=== PATIENT | female | born 1945 | race Hispanic/Latino ===

== ENCOUNTER 2017-05-19 08:39 | Outpatient (CLI) | payer MEDICARE, MEDICAID ==
--- NOTE | 2017-05-19 11:16 | CT ---
CT CHEST WITHOUT CONTRAST PULMONARY LUNG SCAN: HISTORY: Low dose screening. COMPARISON: None. FINDINGS: Lung screen specific (lung-RADS): No suspicious pulmonary nodules. There are minor findings, not suspicious for lung cancer, such as a sub-4 mm nodule, as well as small , pleural-based, triangular nodules. Potentially significant incidentals (lung-RADS category S): None. Pulmonary incidentals: Scarring in the lung apices. Low grade emphysema in the lung apices. No significant mediastinal adenopathy. Dense coronary artery calcifications. Rotator cuff arthropathy bilaterally. 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 No displaced rib fracture. The upper abdomen is unremarkable, aside from dense calcification of the aorta. IMPRESSION: 1. Lung-RADS 2: Benign appearance of behavior. Continue annual low dose screening in 12 months. 2. Lung-RADS Category S: Negative. No new or potentially significant incidental findings requiring urgent additional evaluation. 3. Other incidental findings as above.
== END 2017-05-19 08:40 | disposition home or self-care (01) ==
LOC: CT 08:39
PROVIDERS: ATTEND Family Medicine
DX: Z87.891 Personal history of nicotine dependence (principal)
CPT/HCPCS: G0297

== ENCOUNTER → 2018-02-23 | Day surgery (SDC) | payer MEDICARE, MEDICAID ==
[~2018-02-23] MED LIST: Ferumoxytol (NON ERSD) 510 MG in Sodium Chloride 0.9% 150 ML IVPB SCH
[2018-02-23 15:47] VITALS: BP 123/60; TEMP 98.1
== END ==
LOC: ONC/OP 13:39
PROVIDERS: ATTEND Internal Medicine Medical Oncology
DX: D50.0 Iron deficiency anemia secondary to blood loss (chronic) (principal)
CPT/HCPCS: 36415; 82728; 96365; J7050; Q0138

== ENCOUNTER 2018-03-02 11:25 | Day surgery (SDC) | payer MEDICARE, MEDICAID ==
[2018-03-02] MEDS ORDERED: Ferumoxytol (NON ERSD) 510 MG in Sodium Chloride 0.9% 150 ML IVPB SCH (11:45)
[2018-03-02] MEDS ORDERED: Sodium Chloride 0.9% 20 ML ONE (12:58)
[2018-03-02 13:54] VITALS: BP 131/70; TEMP 98.2
== END 2018-03-02 14:51 | disposition home or self-care (01) ==
LOC: ONC/OP 11:25
PROVIDERS: ATTEND Internal Medicine Medical Oncology
DX: D50.0 Iron deficiency anemia secondary to blood loss (chronic) (principal)
CPT/HCPCS: 96365; J7050; Q0138

== ENCOUNTER 2018-03-09 12:55 | Day surgery (SDC) | payer MEDICARE, MEDICAID ==
[2018-03-09] MEDS ORDERED: SODIUM CHLORIDE IVPB SCH (13:00)
[2018-03-09] MEDS ORDERED: FERUMOXYTOL IVPB SCH (13:00)
[2018-03-09] MEDS ORDERED: ADMIXTURE FEE IVPB SCH (13:00)
[2018-03-09] MEDS ORDERED: Sodium Chloride 0.9% 20 ML ONE (13:02)
== END 2018-03-09 16:25 | disposition home or self-care (01) ==
LOC: ONC/OP 12:55
PROVIDERS: ATTEND Internal Medicine Medical Oncology
DX: D50.0 Iron deficiency anemia secondary to blood loss (chronic) (principal)
CPT/HCPCS: 96365; J7050; Q0139

== ENCOUNTER 2021-01-15 09:58 | Day surgery (SDC) | payer MEDICARE, MEDICAID ==
[2021-01-14 11:56] VITALS: BMI 25.6
[2021-01-15] MEDS ORDERED: Phenylephrine 10 MG/ML VIAL ONE (11:14)
[2021-01-15] MEDS ORDERED: Ondansetron PF 4 MG/2 ML Vial ONE (12:15)
[2021-01-15] MEDS ORDERED: PROPOFOL 200 MG/20 ML VIAL ONE (12:15)
[2021-01-15] MEDS ORDERED: Glycopyrrolate 0.2 MG/ML 5 ML SYRINGE ONE (12:15)
[2021-01-15] MEDS ORDERED: Lidocaine 1% PF 5 ML VIAL ONE (12:15)
[2021-01-15] MEDS ORDERED: ePHEDrine 50 MG/ML VIAL ONE (12:15)
== END 2021-01-15 14:30 | disposition home or self-care (01) ==
LOC: SDC/OP 09:58
PROVIDERS: ATTEND Surgery
DX: M48.061 Spinal stenosis, lumbar region without neurogenic claudication (principal); M48.07 Spinal stenosis, lumbosacral region; M43.16 Spondylolisthesis, lumbar region; M47.26 Other spondylosis with radiculopathy, lumbar region; M51.16 Intervertebral disc disorders with radiculopathy, lumbar region; E11.9 Type 2 diabetes mellitus without complications; E78.5 Hyperlipidemia, unspecified; I10 Essential (primary) hypertension; Z87.891 Personal history of nicotine dependence; Z79.84 Long term (current) use of oral hypoglycemic drugs; Z79.899 Other long term (current) drug therapy
CPT/HCPCS: 72120; 72148; J2370; J2405; J2704; J3490

== ENCOUNTER 2021-02-25 09:39 | Outpatient (CLI) | payer MEDICARE, MEDICAID ==
[2021-02-25 10:47] LABS: Mean Corpuscular HGB CONC 33.3 g/dL (32.0-36.0); Mean Corpuscular Hemoglobin 29.8 pg (27.0-33.0); Mean Corpuscular Volume 89.4 fl (81.6-98.3); Mean Platelet Volume 9.8 fl (7.4-10.4); Platelet Count 284 10x3/uL (150-450); RBC Distribution Width 13.6 % (11.5-14.5); Red Blood Cell (RBC) Count 3.69 10x6/uL (3.90-5.03); White Blood Cell (WBC) Count 10.3 10x3/uL (3.5-10.5)
[2021-02-25 10:56] LABS: PTT 24.4 sec (22.0-33.0); Prothrombin Time 10.9 sec (9.5-12.1)
[2021-02-25 11:00] LABS: Anion Gap 17 mmol/L (10-20); BUN (Urea Nitrogen) 45 mg/dL (9.8-20.1); Calc. Creatinine Clearance 0 mL/min (70-130); Calcium 10.3 mg/dL (7.8-10.44); Carbon Dioxide 24 mmol/L (23-31); Chloride 97 mmol/L (98-107); Glucose 247 mg/dL (83-110); Potassium 4.9 mmol/L (3.5-5.1); Sodium 133 mmol/L (136-145)
[2021-02-25 20:18] LABS: SARS-CoV-2 PCR by NAA Not Detected (NotDetected)
== END 2021-02-25 09:40 | disposition home or self-care (01) ==
LOC: LABBT 09:39
PROVIDERS: ATTEND Surgery
DX: Z01.818 Encounter for other preprocedural examination (principal); M54.16 Radiculopathy, lumbar region; Z20.822 Contact with and (suspected) exposure to COVID-19
CPT/HCPCS: 80048; 85027; 85610; 85730; 93005; U0003; U0005; 93010

== ENCOUNTER 2021-03-02 07:09 | Inpatient (IN) | payer MEDICARE, MEDICAID ==
[2021-03-01 12:59] VITALS: BMI 26.0
[2021-03-02] MEDS ORDERED: Insulin Regular 300 UNITS/3 ML VIAL ONE (08:13)
[2021-03-02] MEDS ORDERED: Thrombin 5000 UNITS/5 ML VIAL ONE (09:25)
[2021-03-02] MEDS ORDERED: Fentanyl 100 MCG/2 ML VIAL ONE ×2 (09:36→12:35)
[2021-03-02] MEDS ORDERED: PROPOFOL 200 MG/20 ML VIAL ONE (09:45)
[2021-03-02] MEDS ORDERED: PHENYLEPHRINE-NS 100 MCG/ML 10 ML SYRINGE ONE (09:45)
[2021-03-02] MEDS ORDERED: Rocuronium Bromide 10 MG/ML (10ML VIAL) ONE (09:45)
[2021-03-02] MEDS ORDERED: Ketorolac Tromethamine 30 MG/ML VIAL ONE (09:45)
[2021-03-02] MEDS ORDERED: Glycopyrrolate 0.2 MG/ML 5 ML SYRINGE ONE (09:45)
[2021-03-02] MEDS ORDERED: Ondansetron PF 4 MG/2 ML Vial ONE (09:45)
[2021-03-02] MEDS ORDERED: Lidocaine 1% PF 5 ML VIAL ONE (09:45)
[2021-03-02] MEDS ORDERED: ePHEDrine 50 MG/ML VIAL ONE (09:45)
[2021-03-02] MEDS ORDERED: Promethazine HCl 25 MG/ML VIAL IVPB PRN (11:58)
[2021-03-02] MEDS ORDERED: Ondansetron HCl/PF 4 MG/2 ML Vial IVP PRN (11:58)
[2021-03-02] MEDS ORDERED: Promethazine HCl 25 MG/ML VIAL IM PRN (11:58)
[2021-03-02] MEDS ORDERED: Acetaminophen/Codeine 30-300mg Tablet PO PRN (12:42)
[2021-03-02] MEDS ORDERED: Morphine 4 MG/ML VIAL SLOW IVP PRN (12:42)
[2021-03-02] MEDS ORDERED: Acetaminophen 325 MG TAB PO PRN (12:42)
[2021-03-02] MEDS ORDERED: HYDROcodone/Acetaminophen 7.5/325 mg Tablet PO PRN (12:42)
[2021-03-02] MEDS ORDERED: ceFAZolin Sodium/D5W 2 GM in Premix Bag 1 BAG IVPB SCH (14:00)
[2021-03-02] MEDS ORDERED: traMADol HCl 50 MG TAB ONE (14:28)
[2021-03-02] MEDS: traMADol HCl 50 MG TAB PO PRN (14:35)
[2021-03-02] MEDS: Sodium Chloride 0.9% 1,000 ML IV SCH ×2 (14:40→21:31)
[2021-03-02] MEDS: glipiZIDE 5 MG TAB PO SCH (18:22)
[2021-03-02] MEDS: CEFAZOLIN 2 GM, Admixture Fee 1 EACH in Sodium Chloride 0.9% 100 ML IVPB SCH (18:22)
[2021-03-02] MEDS: Gabapentin 300 MG CAP PO SCH (19:23)
[2021-03-02] MEDS: Losartan 25 MG TAB PO SCH (19:23)
[2021-03-03] MEDS: CEFAZOLIN 2 GM, Admixture Fee 1 EACH in Sodium Chloride 0.9% 100 ML IVPB SCH (00:13)
[2021-03-03] MEDS: Gabapentin 300 MG CAP PO SCH ×2 (07:44→20:27)
[2021-03-03] MEDS: traMADol HCl 50 MG TAB PO PRN ×2 (07:45→18:36)
[2021-03-03] MEDS: Pioglitazone HCl 15 MG TAB PO SCH (07:50)
[2021-03-03] MEDS: glipiZIDE 5 MG TAB PO SCH ×2 (07:50→17:22)
[2021-03-03] MEDS: Atorvastatin Calcium 20 MG TAB PO SCH (07:50)
[2021-03-03] MEDS: tiZANidine HCl 4 MG TAB PO PRN ×2 (10:26→20:27)
[2021-03-03] MEDS: Sodium Chloride 0.9% 1,000 ML IV SCH (17:08)
[2021-03-03] MEDS: Losartan 25 MG TAB PO SCH (20:27)
[2021-03-04] MEDS: Sodium Chloride 0.9% 1,000 ML IV SCH (06:31)
[2021-03-04] MEDS ORDERED: diphenhydrAMINE 25 MG CAP PO PRN (08:42)
[2021-03-04] MEDS ORDERED: oxyCODONE 5 MG TAB PO SCH (08:45)
[2021-03-04] MEDS: Gabapentin 300 MG CAP PO SCH (08:50)
[2021-03-04] MEDS: glipiZIDE 5 MG TAB PO SCH (08:50)
[2021-03-04] MEDS: Atorvastatin Calcium 20 MG TAB PO SCH (08:56)
[2021-03-04] MEDS: Pioglitazone HCl 15 MG TAB PO SCH (08:56)
[2021-03-04] MEDS ORDERED: Docusate 100 MG CAP PO SCH (09:00)
[2021-03-04 12:07] VITALS: BP 78/42; TEMP 98.1
[2021-03-04] MEDS: traMADol HCl 50 MG TAB PO PRN (15:44)
== END 2021-03-04 16:10 | disposition home or self-care (01) | DRG 520 ==
LOC: SDC 07:09 → SJJU 12:46
PROVIDERS: ADMIT Surgery; ATTEND Surgery
PROC: 00QT0ZZ Repair Spinal Meninges, Open Approach (ICD-10-PCS; principal; 2021-03-02)
PROC: 01NB0ZZ Release Lumbar Nerve, Open Approach (ICD-10-PCS; 2021-03-02)
PROC: 01NR0ZZ Release Sacral Nerve, Open Approach (ICD-10-PCS; 2021-03-02)
DX: M48.062 Spinal stenosis, lumbar region with neurogenic claudication (principal); M54.16 Radiculopathy, lumbar region; Z20.822 Contact with and (suspected) exposure to COVID-19; I10 Essential (primary) hypertension; E78.5 Hyperlipidemia, unspecified; E11.9 Type 2 diabetes mellitus without complications; Z87.891 Personal history of nicotine dependence; Z79.84 Long term (current) use of oral hypoglycemic drugs; Z79.899 Other long term (current) drug therapy
CPT/HCPCS: 36416; 76000; 93970; J0690; J1815; J1885; J2405; J2704; J3010; J3370; J3490